=== PATIENT | female | born 1940 | race Caucasian/White ===

== ENCOUNTER 2017-01-17 10:37 | Emergency (ER) | payer OTHER ==
[2017-01-17 10:56] LABS: URINE SOURCE CLEAN CATCH
[2017-01-17] MEDS ORDERED: NS 1,000 ML IV ONE (10:56)
[2017-01-17] MEDS ORDERED: ZOFRAN IV ONE (10:56)
[2017-01-17] MEDS ORDERED: MORPHINE IV ONE (10:56)
[2017-01-17 11:08] LABS: BILIRUBIN URINE NEGATIVE (NEGATIVE); BLOOD URINE 4+ (NEGATIVE); CLARITY SL. CLOUDY (CLEAR); COLOR YELLOW; GLUCOSE URINE NEGATIVE (NEGATIVE); LEUKOCYTES URINE 1+ (NEGATIVE); NITRITE URINE POSITIVE (NEGATIVE); PROTEIN URINE 1+(30 mg/dL) mg/dL (NEGATIVE); SP GRAVITY URINE 1.015; UROBILINOGEN URINE NORMAL
[2017-01-17 11:09] LABS: URINE CULTURE PL NEEDED? YES; URINE EPITHELIAL CELLS <10 /HPF (<10); URINE RBC TNTC /HPF (<10)
[2017-01-17 11:21] LABS: BASO% 0.1 % (0.0-0.8); EOS# 0.09 X1000 (0.0-0.7); EOS% 0.8 % (0.0-10.0); HEMATOCRIT 36.1 % (37.0-47.0); HEMOGLOBIN 11.9 g/dL (12.0-16.0); IMM GRAN# 0.02 X1000 (0.0-0.04); IMM GRAN% 0.2 % (0.0-0.5); MANUAL DIFF NEEDED? NO; MCH 29.3 PG (27-31); MCV 88.9 FL (81-99); MONO# 0.75 X1000 (0.11-0.59); MONO% 6.8 % (1.7-9.3); MPV 11.5 FL (7.4-10.4); NEUT% 82.1 % (42.2-75.2); PLT 191 X1000 (130-400); RBC 4.06 XMIL (4.2-5.4)
--- NOTE | 2017-01-17 11:23 | PROVIDER DOCUMENTATION ---
HPI-Female /OB/Breast - General Source: reports: patient - History of Present Illness-Female /OB Does patient report she is ?: No Location of complaint: reports: other (R lumbar back) Radiation: reports: right flank Quality of Pain: reports: aching Severity in ED: reports: moderate Onset/Duration: reports: this morning Timing: reports: still present Context/Activities at Onset: reports: light activity Vaginal Symptoms: reports: no symptoms Vaginal Bleeding Amount: None Urinary Symptoms: reports: retention, low back pain (R side) Related Symptoms: reports: no symptoms Leakage of Fluid: none Sexual intercourse history: reports: Not Active Contraception: reports: none Modifying Factors: improves with: nothing Associated Symptoms: reports: back/neck pain (back pain). denies: anxiety, chest pain, constipation, cough, diaphoresis, diarrhea, dizziness, fatigue, fever/chills, joint pain, loss of appetite, malaise, muscle aches, nausea, rash , seizure, sensory/motor loss, swelling/mass in abdomen, syncope, vomiting, weakness, trouble walking Similar Symptoms Previously?: Yes Recently seen or treated by another doctor?: No <Willa Wilburn - Last Filed: 01/17/17 11:18> <Bhavik Chery - Last Filed: 01/17/17 12:07> - General Chief Complaint: Flank Pain Stated Complaint: UTI SX/FLANK PAIN Time Seen by Provider: 01/17/17 10:46 Allergies/Adverse Reactions: Patient Allergies Allergy/AdvReac Type Severity Reaction Status Date / Time meperidine HCl * Allergy Unknown Verified 01/17/17 10:47 [From [facility]] Home Medications: Home Medication List Medication Instructions Recorded Confirmed Last Taken Type Ibuprofen [Motrin] 800 mg PO Q8H PRN PRN #20 tablet 01/17/17 Unknown Rx Phenazopyridine HCl [Pyridium] 100 mg PO TID #6 tablet 01/17/17 Unknown Rx Sulfamethoxazole/Trimethoprim 1 each PO BID #10 tablet 01/17/17 Unknown Rx [Bactrim Ds Tablet] - History of Present Illness-Female /OB Nature of Presenting Problem: Pt is 76 y/o F presents to the ED with R lumbar back pain. Pt states pain started this am. Pt states hx of kidney stones. Pt states pain feel like prior kidney stones. Pt denies hematuria and dysuria, but did have a problem going this am. Pt states pain is radiating to R flank. (Willa Wilburn) Review of Systems - Adult - REVIEW OF SYSTEMS - ADULT Constitutional: denies: chills, fever Eyes: denies: blurred vision, double vision Ears, Nose, Mouth & Throat: denies: ear pain, nose pain, throat pain Cardiovascular: denies: chest pain, heart murmur, irregular heart rate Respiratory: denies: cough, shortness of breath, wheezing Gastrointestinal: denies: abdominal pain, diarrhea, nausea, vomiting Genitourinary: reports: flank pain (R), urinary retention. denies: dysuria, hematuria Musculoskeletal: reports: back pain (R side lumbar). denies: bone pain, joint pain, neck pain Integumentary: denies: hives, itching Neurological: denies: dizziness/vertigo, headache/migraines Psychiatric: reports: no symptoms reported Endocrine: reports: no symptoms reported Hematologic/Lymphatic: reports: no symptoms reported Allergic/Immunologic: reports: no symptoms reported All Other Systems: Reviewed and Negative <Willa Wilburn - Last Filed: 01/17/17 11:18> Past History - Adult - PAST MEDICAL HISTORY-ADULT Review of Records: reports: Nursing Assessment Review, Medications Reviewed, Social history reviewed & non-contributory. Major Childhood Illnesses: reports: denies history Cardiovascular: reports: HTN, hyperlipidemia Respiratory: reports: denies history Gastrointestinal: reports: denies history Obstetrical/Gynecological: reports: denies history Genitourinary: reports: denies history Musculoskeletal: reports: denies history Neurological: reports: denies history Endocrine/Immune: reports: denies history Other Conditions: reports: denies history - PRIOR SURGERIES/PROCEDURES Surgical/Procedure History: reports: hysterectomy - IMMUNIZATION STATUS Childhood Immunizations: See Nurse Assessment Flu Vaccine: See Nurse Assessment - FAMILY HISTORY Family History: reviewed, not pertinent - SOCIAL HISTORY Smoking: denies Substance Use: denies Living Situation: family <Willa Wilburn - Last Filed: 01/17/17 11:18> Physical Exam-General - PHYSICAL EXAM-ADULT Initial Vital Signs Reviewed: Yes - CONSTITUTIONAL General Appearance: appears well, alert, no apparent distress - EYES Eyes: PERRL/EOMI, pink conjunctivae, fundi clear, no AV nicking - HEAD, EARS, NOSE, MOUTH & THROAT HENMT: normocephalic/atraumatic, moist mucous membranes, normal ENT inspection, TMs normal, pharynx normal - NECK Neck: non-tender, full range of motion, supple, normal inspection - RESPIRATORY Respiratory: chest non-tender, lungs clear, normal breath sounds, no pleuratic chest pain, no respiratory distress, no accessory muscle use - CARDIOVASCULAR Cardiovascular: normal peripheral pulses, regular rate, rhythm, no edema, no gallop, no JVD, no murmur - GASTROINTESTINAL (ABDOMEN) Abdominal Exam: normal bowel sounds, soft, no organomegaly, no pulsatile mass, tenderness (R flank) - LYMPHATIC Lymphatic: no adenopathy - MUSCULOSKELETAL Back Exam: normal inspection, no vertebral tenderness, CVA tenderness (R side lumbar) Extremity: normal range of motion, non-tender, normal gait, normal inspection, no pedal edema - SKIN Integumentary: normal color, normal turgor, warm/dry - 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, grossly normal, no motor/sensory deficits - PSYCHIATRIC Psych/Mental Status: normal mood/affect, normal thought content, normal thought process, oriented x 3 <Willa Wilburn - Last Filed: 01/17/17 11:18> Progress <Willa Wilburn - Last Filed: 01/17/17 11:18> - CT/MRI 1 CT Study: Renal Stone CT Results: R hydro; no ureteral stones <Bhavik Chery - Last Filed: 01/17/17 12:07> - PLAN OF CARE/RESULTS Progress/Plan/Lab Results: Laboratory Tests 01/17/17 01/17/17 10:47 11:14 WBC 11.05 H RBC 4.06 L Hgb 11.9 L Hct 36.1 L MCV 88.9 MCH 29.3 MCHC 33.0 RDW Std Deviation 12.8 Plt Count 191 MPV 11.5 H Immature Gran % (Auto) 0.2 Neut % (Auto) 82.1 H Lymph % (Auto) 10.0 L [place] % (Auto) 6.8 Eos % (Auto) 0.8 Baso % (Auto) 0.1 Immature Gran # (Auto) 0.02 Neut # (Auto) 9.08 H Lymph # (Auto) 1.10 L [place] # (Auto) 0.75 H Eos # (Auto) 0.09 Baso # (Auto) 0.01 Urine Source CLEAN CATCH Urine Color YELLOW Urine Clarity SL. CLOUDY A Urine pH 6.0 Ur Specific [place] 1.015 Urine Protein 1+(30 mg/dL) A Urine Ketones NEGATIVE Urine Blood 4+ Urine Nitrite POSITIVE A Urine Bilirubin NEGATIVE Urine Urobilinogen NORMAL Urine Microscopic RBC TNTC A Urine WBC 1+ A Urine Microscopic WBC 10-20 A Ur Epithelial Cells <10 Urine Bacteria 4+ Urine Glucose NEGATIVE Orders Category Date Time Status Saline Loc NOW Care 01/17/17 10:56 Active RENAL STONE SEARCH [CT] Stat Exams 01/17/17 10:56 Taken CBC WITH DIFF [HEME] Stat Lab 01/17/17 11:14 Completed COMPREHENSIVE METABOLIC PANEL [CHEM] Stat Lab 01/17/17 11:[address] W/POSS RFLX CULT [URINALYSIS] Stat Lab 01/17/17 10:47 Completed URINE CULTURE [RM] Routine Lab 01/17/17 11:10 Ordered 0.9% Sodium Chloride Inj [Ns] 1,000 ml Med 01/17/17 10:56 Active IV 999 mls/hr Morphine Med 01/17/17 10:56 Discontinued 4 mg IV NOW ONE Ondansetron [Zofran] Med 01/17/17 10:56 Discontinued 4 mg IV NOW ONE Vital Signs - 24 hr 01/17/17 10:44 Temperature 97.2 F L Pulse Rate 67 Respiratory 18 Rate Blood Pressure 147/61 O2 Sat by Pulse 100 Oximetry (Willa Wilburn) Laboratory Tests 01/17/17 01/17/17 01/17/17 10:47 11:14 11:14 WBC 11.05 H RBC 4.06 L Hgb 11.9 L Hct 36.1 L MCV 88.9 MCH 29.3 MCHC 33.0 RDW Std Deviation 12.8 Plt Count 191 MPV 11.5 H Immature Gran % (Auto) 0.2 Neut % (Auto) 82.1 H Lymph % (Auto) 10.0 L [place] % (Auto) 6.8 Eos % (Auto) 0.8 Baso % (Auto) 0.1 Immature Gran # (Auto) 0.02 Neut # (Auto) 9.08 H Lymph # (Auto) 1.10 L [place] # (Auto) 0.75 H Eos # (Auto) 0.09 Baso # (Auto) 0.01 Sodium 141 Potassium 4.1 Chloride 103 Carbon Dioxide 27 Anion Gap 11 BUN 16 Creatinine 1.0 H Estimated GFR/1.73 m2 54 BUN/Creatinine Ratio 16 Glucose 134 H Calculated Osmolality 284 Calcium 9.9 Total Bilirubin 0.40 AST 41 H ALT 26 Alkaline Phosphatase 58 Total Protein 7.2 Albumin 4.3 Globulin 3.0 Albumin/Globulin Ratio 1.0 Urine Source CLEAN CATCH Urine Color YELLOW Urine Clarity SL. CLOUDY A Urine pH 6.0 Ur Specific [place] 1.015 Urine Protein 1+(30 mg/dL) A Urine Ketones NEGATIVE Urine Blood 4+ Urine Nitrite POSITIVE A Urine Bilirubin NEGATIVE Urine Urobilinogen NORMAL Urine Microscopic RBC TNTC A Urine WBC 1+ A Urine Microscopic WBC 10-20 A Ur Epithelial Cells <10 Urine Bacteria 4+ Urine Glucose NEGATIVE Orders Category Date Time Status Saline Loc NOW Care 01/17/17 10:56 Active RENAL STONE SEARCH [CT] Stat Exams 01/17/17 10:56 Taken CBC WITH DIFF [HEME] Stat Lab 01/17/17 11:14 Completed COMPREHENSIVE METABOLIC PANEL [CHEM] Stat Lab 01/17/17 11:[address] W/POSS RFLX CULT [URINALYSIS] Stat Lab 01/17/17 10:47 Completed URINE CULTURE [RM] Routine Lab 01/17/17 11:10 Ordered 0.9% Sodium Chloride Inj [Ns] 1,000 ml Med 01/17/17 10:56 Discontinued IV 999 mls/hr CefTRIAXONE 1 GM/NS [Rocephin 1 gm/Ns] 50 ml Med 01/17/17 11:28 Discontinued IV NOW Ketorolac [Toradol] Med 01/17/17 11:28 Discontinued 30 mg IV NOW ONE Morphine Med 01/17/17 10:56 Discontinued 4 mg IV NOW ONE Ondansetron [Zofran] Med 01/17/17 10:56 Discontinued 4 mg IV NOW ONE Vital Signs Temp Pulse Resp BP Pulse Ox 01/17/17 10:44 97.2 F L 67 18 147/61 100 meperidine HCl * [From Demerol] Allergy (Verified 01/17/17 10:47) Unknown Laboratory 01/17/17 01/17/17 01/17/17 11:14 11:14 10:47 WBC 11.05 H RBC 4.06 L Hgb 11.9 L Hct 36.1 L MCV 88.9 MCH 29.3 MCHC 33.0 RDW Std Deviation 12.8 Plt Count 191 MPV 11.5 H Immature Gran % (Auto) 0.2 Neut % (Auto) 82.1 H Lymph % (Auto) 10.0 L [place] % (Auto) 6.8 Eos % (Auto) 0.8 Baso % (Auto) 0.1 Immature Gran # (Auto) 0.02 Neut # (Auto) 9.08 H Lymph # (Auto) 1.10 L [place] # (Auto) 0.75 H Eos # (Auto) 0.09 Baso # (Auto) 0.01 Sodium 141 Potassium 4.1 Chloride 103 Carbon Dioxide 27 Anion Gap 11 BUN 16 Creatinine 1.0 H Estimated GFR/1.73 m2 54 BUN/Creatinine Ratio 16 Glucose 134 H Calculated Osmolality 284 Calcium 9.9 Total Bilirubin 0.40 AST 41 H ALT 26 Alkaline Phosphatase 58 Total Protein 7.2 Albumin 4.3 Globulin 3.0 Albumin/Globulin Ratio 1.0 Urine Source CLEAN CATCH Urine Color YELLOW Urine Clarity SL. CLOUDY A Urine pH 6.0 Ur Specific [place] 1.015 Urine Protein 1+(30 mg/dL) A Urine Ketones NEGATIVE Urine Blood 4+ Urine Nitrite POSITIVE A Urine Bilirubin NEGATIVE Urine Urobilinogen NORMAL Urine Microscopic RBC TNTC A Urine WBC 1+ A Urine Microscopic WBC 10-20 A Ur Epithelial Cells <10 Urine Bacteria 4+ Urine Glucose NEGATIVE Pt is feeling well. Will d/c home. she is in agreement. (Bhavik Chery) Departure <Willa Wilburn - Last Filed: 01/17/17 11:18> - Departure Time of Disposition Order: 12:05 Certified Medical Emergency: Emergent <Bhavik Chery - Last Filed: 01/17/17 12:07> - Departure DIAGNOSIS: Kidney stone UTI (urinary tract infection) Qualifiers: Urinary tract infection type: acute cystitis Hematuria presence: with hematuria Qualified Code(s): N30.01 - Acute cystitis with hematuria Disposition: HOME 01 Condition: Good Additional Instructions: Take medication as prescribed. Stay well hydrated. Follow up with your primary care provider and urologist. ED Follow Up Instructions: You have been treated by a care provider in the Emergency Department. These instructions are being provided to you so you can have an understanding of how to care for yourself upon discharge. Upon discharge from the Emergency Department, you are responsible for making arrangements for follow-up care by a physician of your choice. Take all prescribed medications as directed. Return to the Emergency Department immediately for any new or worsening symptoms. You may call the Physician Referral phone number at [phone] to obtain a list of Physicians who are taking new patients. Prescriptions: Sulfamethoxazole/Trimethoprim [Bactrim Ds Tablet] 1 each PO BID #10 tablet Ibuprofen [Motrin] 800 mg PO Q8H PRN PRN #20 tablet PRN Reason: inflammation Phenazopyridine HCl [Pyridium] 100 mg PO TID #6 tablet Referrals: Martin Espinosa [Primary Care Provider] - James Real DO [STAFF PHYSICIAN] - Attestation - Scribe Verification/Attestation Scribe:: Willa Wilburn Acting as Scribe for:: Bhavik Chery Scribe documention review:: This chart was documented by a scribe and accurately reflects the service the provider performed and the decisions made by the provider. <Willa Wilburn - Last Filed: 01/17/17 11:18> - Physician/ LEONORA Attestation Patient care was provided by Advanced Practice Provider:: Yes Advanced Practice Provider:: Bhavik Chery Advanced Practice Provider documentation review:: The Mid-level provider documentation, treatment plan and medical decision making was reviewed by the physician who agrees with all treatment and medical decision making by the P. <Bhavik Chery - Last Filed: 01/17/17 12:07> Physician Attestation
[2017-01-17] MEDS ORDERED: TORADOL IV ONE (11:28)
[2017-01-17] MEDS ORDERED: ROCEPHIN 1 GM/NS 50 ML IV ONE (11:28)
[2017-01-17 11:54] LABS: ALBUMIN 4.3 g/dL (3.5-5.0); CALCIUM 9.9 mg/dL (8.8-10.2); POTASSIUM 4.1 mmol/L (3.5-5.1); TOTAL BILIRUBIN 0.4 mg/dL (0.20-1.00); TOTAL PROTEIN 7.2 g/dL (6.3-8.3)
[2017-01-17 12:10] VITALS: BP 133/62
--- NOTE | 2017-01-17 12:22 | Diag Imaging Result Document ---
PROCEDURE NAME: RENAL STONE SEARCH - 01/17/2017 CT RENAL STONE SEARCH WITHOUT CONTRAST: A dose-reduction protocol was used. COMPARISON: 04/29/2013. FINDINGS: There is [id number] hydronephrosis with mild hydroureter on the right. There is no obstructing right renal stone identified. The hydronephrosis may relate to recently passed stone from the right or possibly to right pyelonephritis. There is no substantial perinephric edema identified. There is a 4 mm nonobstructing stone in the lower right kidney. There is no left renal stone or hydronephrosis identified. There is no evidence of bowel obstruction. There is no free air. There are some mildly prominent mesenteric lymph nodes similar to the previous exam. The gallbladder is surgically absent. There is apparent mild subsegmental atelectasis at the left lung base. IMPRESSION: 1. [id number] hydronephrosis on the right. No obstructing renal stone identified. Considerations include recently passed stone from the right and right pyelonephritis. There is a 4 mm nonobstructing stone in the lower right kidney. 2. Mildly prominent mesenteric lymph nodes similar to the previous exam.
== END 2017-01-17 12:30 | disposition home or self-care (01) ==
LOC: P.ED 10:37
DX: N30.01 Acute cystitis with hematuria (principal); N13.2 Hydronephrosis with renal and ureteral calculous obstruction; M54.5 Low back pain; R10.9 Unspecified abdominal pain; R33.9 Retention of urine, unspecified; I10 Essential (primary) hypertension; E78.5 Hyperlipidemia, unspecified; Z87.442 Personal history of urinary calculi
CPT/HCPCS: 36415; 74176; 80053; 81001; 85025; 87088; 96365; 96375; J0696; J1885; J2270; J2405; J7030